=== PATIENT | male | born 1965 | race Caucasian/White ===

== ENCOUNTER → 2016-11-10 | Outpatient (CLI) | payer BC ==
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
== END | disposition home or self-care (01) ==
LOC: SLEEP 11:09
PROVIDERS: ATTEND Internal Medicine
DX: G47.33 Obstructive sleep apnea (adult) (pediatric) (principal); E66.9 Obesity, unspecified; E78.5 Hyperlipidemia, unspecified; K21.9 Gastro-esophageal reflux disease without esophagitis; Z68.31 Body mass index [BMI] 31.0-31.9, adult; Z79.899 Other long term (current) drug therapy
CPT/HCPCS: 99211

== ENCOUNTER → 2017-02-09 | Outpatient (CLI) | payer BC ==
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
== END | disposition home or self-care (01) ==
LOC: SLEEP 15:04
PROVIDERS: ATTEND Internal Medicine
DX: G47.33 Obstructive sleep apnea (adult) (pediatric) (principal); E78.5 Hyperlipidemia, unspecified; M54.9 Dorsalgia, unspecified; K21.9 Gastro-esophageal reflux disease without esophagitis; E66.9 Obesity, unspecified; Z68.33 Body mass index [BMI] 33.0-33.9, adult; Z98.890 Other specified postprocedural states; Z96.611 Presence of right artificial shoulder joint; Z79.899 Other long term (current) drug therapy

== ENCOUNTER → 2018-02-08 | Outpatient (CLI) | payer BC ==
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
== END | disposition home or self-care (01) ==
LOC: SLEEP 09:54
PROVIDERS: ATTEND Internal Medicine
DX: G47.33 Obstructive sleep apnea (adult) (pediatric) (principal); E66.9 Obesity, unspecified; M54.9 Dorsalgia, unspecified; E78.5 Hyperlipidemia, unspecified; K21.9 Gastro-esophageal reflux disease without esophagitis; M25.819 Other specified joint disorders, unspecified shoulder; Z99.89 Dependence on other enabling machines and devices; Z79.899 Other long term (current) drug therapy; Z68.35 Body mass index [BMI] 35.0-35.9, adult; Z98.890 Other specified postprocedural states; Z87.828 Personal history of other (healed) physical injury and trauma

== ENCOUNTER 2018-10-14 06:07 | Emergency (ER) | payer BC ==
[2018-10-14 06:20] VITALS: RESP 18; TEMP 98.1
[2018-10-14] MEDS ORDERED: SODIUM CHLORIDE 0.9% 1,000 ML IV STA (06:34)
--- NOTE | 2018-10-14 06:38 | ED ---
Abdominal Pain HPI - General Chief Complaint: Abdominal Pain Stated Complaint: groin and back pain,light headed Time Seen by Provider: 10/14/18 06:15 Source: patient, RN notes reviewed Mode of arrival: ambulatory Limitations: no limitations - History of Present Illness Initial Comments: 53-year-old male presents emergency Department chief complaint of sudden onset of left flank pain. Patient states that the pain is improved at this time but states there is moderate left lower quadrant pain. Patient states pain radiated only to his back. Patient admits nausea no vomiting he did have a normal bowel movement which it did not really alleviate the symptoms. He has no dysuria no hematuria no history of bowel infections no prior abdominal surgeries no history kidney stones. Patient states that nothing really made the pain feel better or worse. Patient states it's much pain that he felt very lightheaded denies any chest pain or syncopal episode. - Related Data Home Medications Medication Instructions Recorded Confirmed Meloxicam 15 mg PO DAILY 10/14/18 10/14/18 Omeprazole Magnesium [PriLOSEC OTC] 20 mg PO DAILY PRN 10/14/18 10/14/18 Previous Rx's Medication Instructions Recorded Ketorolac [Toradol] 10 mg PO Q8HR #15 tab 10/14/18 Ondansetron Odt [Zofran Odt] 4 mg PO Q8HR PRN #10 tab 10/14/18 Tamsulosin [Flomax] 0.4 mg PO DAILY #7 cap 10/14/18 Allergies Allergy/AdvReac Type Severity Reaction Status Date / Time No Known Allergies Allergy Verified 10/14/18 06:20 Review of Systems ROS Statement: Those systems with pertinent positive or pertinent negative responses have been documented in the HPI. ROS Other: All systems not noted in ROS Statement are negative. Past Medical History Past Medical History: GERD/Reflux History of Any Multi-Drug Resistant Organisms: None Reported Past Surgical History: Orthopedic Surgery, Tonsillectomy Additional Past Surgical History / Comment(s): CARPAL TUNNEL LEFT and Right HAND , ARTHROSCOPIC LEFT KNEE Past Anesthesia/Blood Transfusion Reactions: No Reported Reaction Past Psychological History: No Psychological Hx Reported Smoking Status: Former smoker Past Alcohol Use History: Occasional Past Drug Use History: None Reported - Past Family History Mother Family Medical History: Cancer General Exam Limitations: no limitations General appearance: alert, in no apparent distress Head exam: Present: atraumatic, normocephalic, normal inspection Neck exam: Present: normal inspection, full ROM. Absent: tenderness, meningismus, lymphadenopathy Respiratory exam: Present: normal lung sounds bilaterally. Absent: respiratory distress, wheezes, rales, rhonchi, stridor Cardiovascular Exam: Present: regular rate, normal rhythm, normal heart sounds. Absent: systolic murmur, diastolic murmur, rubs, gallop, clicks GI/Abdominal exam: Present: soft, normal bowel sounds. Absent: distended, tenderness, guarding, rebound, rigid Back exam: Present: full ROM. Absent: tenderness, CVA tenderness (R), CVA te nderness (L), muscle spasm, paraspinal tenderness, vertebral tenderness Neurological exam: Present: alert, oriented X3, CN II-XII intact Skin exam: Present: warm, dry, intact, normal color. Absent: rash Course Vital Signs 10/14/18 10/14/18 06:14 07:05 Temperature 98.1 F Pulse Rate 88 73 Respiratory 18 18 Rate Blood Pressure 168/78 150/84 O2 Sat by Pulse 98 97 Oximetry Medical Decision Making - Medical Decision Making 53-year-old male presents for left flank pain. Patient had labs urinalysis and CT urinalysis shows evidence of hematuria, symptoms are consistent with stone I did review the CT which appears to be a small stone in the left ureter. Patient's pain is controlled patient will be discharged at this time with Toradol, Zofran, Flomax. Patient will follow-up with PCP and urology return parameters were discussed. - Lab Data Result diagrams: 10/14/18 07:03 10/14/18 07:03 Lab Results 10/14/18 10/14/18 10/14/18 Range/Units 06:58 07:03 07:03 WBC 8.1 (3.8-10.6) k/uL RBC 4.85 (4.30-5.90) m/uL Hgb 14.4 (13.0-17.5) gm/dL Hct 44.4 (39.0-53.0) % MCV 91.6 (80.0-100.0) fL MCH 29.7 (25.0-35.0) pg MCHC 32.4 (31.0-37.0) g/dL RDW 15.6 H (11.5-15.5) % Plt Count 214 (150-450) k/uL Neutrophils % 75 % Lymphocytes % 19 % Monocytes % 5 % Eosinophils % 1 % Basophils % 0 % Neutrophils # 6.1 (1.3-7.7) k/uL Lymphocytes # 1.5 (1.0-4.8) k/uL Monocytes # 0.4 (0-1.0) k/uL Eosinophils # 0.1 (0-0.7) k/uL Basophils # 0.0 (0-0.2) k/uL Sodium 141 (137-145) mmol/L Potassium 4.1 (3.5-5.1) mmol/L Chloride 109 H (98-107) mmol/L Carbon Dioxide 23 (22-30) mmol/L Anion Gap 9 mmol/L BUN 22 H (9-20) mg/dL Creatinine 1.21 (0.66-1.25) mg/dL Est GFR (CKD-EPI)AfAm 78 (>60 ml/min/1.73 sqM) Est GFR (CKD-EPI)NonAf 67 (>60 ml/min/1.73 sqM) Glucose 155 H (74-99) mg/dL Calcium 9.2 (8.4-10.2) mg/dL Total Bilirubin 0.6 (0.2-1.3) mg/dL AST 30 (17-59) U/L ALT 47 (21-72) U/L Alkaline Phosphatase 59 (38-126) U/L Total Protein 6.7 (6.3-8.2) g/dL Albumin 4.0 (3.5-5.0) g/dL Lipase 159 (23-300) U/L Urine Color Yellow Urine Appearance Cloudy (Clear) Urine pH 5.5 (5.0-8.0) Ur Specific Happy 1.016 (1.001-1.035) Urine Protein Trace H (Negative) Urine Glucose (UA) Negative (Negative) Urine Ketones Negative (Negative) Urine Blood Large H (Negative) Urine Nitrite Negative (Negative) Urine Bilirubin Negative (Negative) Urine Urobilinogen <2.0 (<2.0) mg/dL Ur Leukocyte Esterase Negative (Negative) Urine RBC 142 H (0-5) /hpf Urine WBC 3 (0-5) /hpf Ur Squamous Epith Cells <1 (0-4) /hpf Urine Mucus Few H (None) /hpf Urine Yeast (Budding) Many H (None) /hpf Disposition Clinical Impression: Left ureteral calculus, Hematuria Disposition: HOME SELF-CARE Condition: Stable Instructions (If sedation given, give patient instructions): Kidney Stones (ED) Additional Instructions: Please return to the Emergency Department if symptoms worsen or any other concerns. Prescriptions: Tamsulosin [Flomax] 0.4 mg PO DAILY #7 cap Ketorolac [Toradol] 10 mg PO Q8HR #15 tab Ondansetron Odt [Zofran Odt] 4 mg PO Q8HR PRN #10 tab PRN Reason: Nausea Is patient prescribed a controlled substance at d/c from ED?: No Referrals: Richard Colmenares DO [Primary Care Provider] - 1-2 days Neo Aguilar MD [STAFF PHYSICIAN] - 1-2 days Time of Disposition: 07:48
[2018-10-14 07:14] LABS: Basophils % (A) 0 %; Eosinophils # (A) 0.1 k/uL (0-0.7); Eosinophils % (A) 1 %; HCT 44.4 % (39.0-53.0); HGB 14.4 gm/dL (13.0-17.5); Lymphocytes # (A) 1.5 k/uL (1.0-4.8); Lymphocytes % (A) 19 %; MCH 29.7 pg (25.0-35.0); MCHC 32.4 g/dL (31.0-37.0); MCV 91.6 fL (80.0-100.0); Mean Platelet Volume 7.3; Monocytes # (A) 0.4 k/uL (0-1.0); Monocytes % (A) 5 %; Neutrophils # (A) 6.1 k/uL (1.3-7.7); Neutrophils % (A) 75 %; Platelet Count 214 k/uL (150-450); RBC 4.85 m/uL (4.30-5.90); RDW 15.6 % (11.5-15.5); WBC 8.1 k/uL (3.8-10.6)
[2018-10-14 07:21] LABS: Appearance,Urine Cloudy (Clear); Bilirubin,Urine Negative (Negative); Blood,Urine Large (Negative); Budding Yeast,Urine Many /hpf; Color,Urine Yellow; Glucose,Urine (UA) Negative (Negative); Ketones,Urine Negative (Negative); Leukocyte Esterase,Urine Negative (Negative); Mucus,Urine Few /hpf; Nitrite,Urine Negative (Negative); PH, Urine 5.5 (5.0-8.0); Protein,Urine Trace (Negative); RBC,Urine 142 /hpf (0-5); Specific Gravity,Urine 1.016 (1.001-1.035); Squamous Epithelial Cell,Urine <1 /hpf (0-4); Urobilinogen,Urine <2.0 mg/dL (<2.0)
[2018-10-14 07:30] LABS: Calcium 9.2 mg/dL (8.4-10.2); Potassium 4.1 mmol/L (3.5-5.1); Total Bilirubin 0.6 mg/dL (0.2-1.3); Total Protein 6.7 g/dL (6.3-8.2)
--- NOTE | 2018-10-14 07:39 | CT ---
EXAMINATION TYPE: CT abdomen pelvis wo con DATE OF EXAM: 10/14/2018 COMPARISON: NONE HISTORY: LLQ pain with bowel changes. CT DLP: 842.8 mGycm Automated exposure control for dose reduction was used. FINDINGS: Visualized portions of the lungs are clear. There is no pleural or pericardial fluid. The h eart is not enlarged. Within the abdomen, there is hepatosplenomegaly with the liver measuring 22 cm and the spleen measuri ng 16.5 cm. The gallbladder is unremarkable. Both adrenal glands are normal. There is no evidence of necrosis or nephrolithiasis. Limited views of the pancreas are unremarkable. There is no significant retroperitoneal, iliac or inguinal adenopathy. Wall the bladder appears mildly thickened. The bladder however, is not distended. There are bilateral direct hernias containing fat only, greater on the right than the left. The left side of the colon is largely collapsed. This makes assessment of bowel wall thickening diffi cult. The appendix is unremarkable. Small bowel loops are normal in caliber. There is a small periumbilical hernia containing fat only with a mouth measuring 1.2 cm. There is no free fluid and no free air. There is facet arthropathy and degenerative disc disease within the spine. There is mild hypertrophic spondylosis in the dorsal spine. IMPRESSION: 1. MILD HEPATOSPLENOMEGALY. 2. NO EVIDENCE OF NEPHROLITHIASIS OR HYDRONEPHROSIS. 3. NORMAL APPENDIX. 4. COLLAPSE OF THE LEFT SIDE OF THE COLON MAKES IT DIFFICULT TO EXCLUDE BOWEL WALL THICKENING. PLEASE CORRELATE TO EXCLUDE COLITIS. 5. BILATERAL DIRECT INGUINAL HERNIAS CONTAINING FAT ONLY. 6. PERIUMBILICAL HERNIA CONTAINING FAT ONLY WITH A 1.2 CM MOUTH. 7. DEGENERATIVE CHANGES WITHIN THE SPINE.
[2018-10-14 07:56] VITALS: BP 144/83; PULSE 94
== END 2018-10-14 07:55 | disposition home or self-care (01) ==
LOC: EC 06:07
DX: N20.1 Calculus of ureter (principal); Z87.891 Personal history of nicotine dependence; Z87.19 Personal history of other diseases of the digestive system
CPT/HCPCS: 36415; 74176; 80053; 81001; 83690; 85025; 96360; 99284

== ENCOUNTER → 2020-04-03 | Outpatient (CLI) | payer BC ==
--- NOTE | 2020-04-05 10:56 | MR ---
EXAMINATION TYPE: MR shoulder LT wo con DATE OF EXAM: 04/03/2020 COMPARISON: None HISTORY: Left shoulder pain for 1 month. TECHNIQUE: Multiplanar, multisequence imaging of the left shoulder is performed without contrast. FINDINGS: Rotator Cuff: Small joint effusion is present. There is fluid in subacromial bursa and subdeltoid bur sa. Fluid surrounds the supraspinatus tendon. No tendon retraction is evident. Muscles signal through the rotator cuff appears normal. Correlate for moderate tendinosis supraspinatus tendon. Acromioclavicular Joint: Hypertrophy with downward spurring which can contribute to impingement syndr ome Glenohumeral Joint: There is thinning of the articular cartilage. Correlate for moderate osteoarthrit ic degenerative change. Labrum: Degenerative changes appear to be present throughout the glenoid labrum. Biceps Tendon: The biceps tendon is within the bicipital groove. This is surrounded by fluid. Correla te for moderate tendinosis. Bone marrow signal: No focal abnormal marrow signal is appreciated. Other: No additional significant abnormality is appreciated. IMPRESSION: 1. Moderate osteoarthritic degenerative change left shoulder. 2. Moderate tendinosis supraspinatus tendon and long head biceps tendon. 3. No suspicious rotator cuff tear is evident. Small perforation is not identified. 3. Small joint effusion
== END | disposition home or self-care (01) ==
LOC: RADMRIMAIN 20:27
PROVIDERS: ATTEND Orthopaedic Surgery
DX: M19.012 Primary osteoarthritis, left shoulder (principal); M67.814 Other specified disorders of tendon, left shoulder

== ENCOUNTER → 2020-06-22 | Outpatient (CLI) | payer BC ==
[2020-06-22 17:19] LABS: Basophils % (A) 1 %; Eosinophils # (A) 0.1 k/uL (0-0.7); Eosinophils % (A) 2 %; HCT 45.6 % (39.0-53.0); HGB 15.5 gm/dL (13.0-17.5); Lymphocytes # (A) 1.8 k/uL (1.0-4.8); Lymphocytes % (A) 35 %; MCH 29.8 pg (25.0-35.0); MCHC 34.1 g/dL (31.0-37.0); MCV 87.3 fL (80.0-100.0); Monocytes # (A) 0.3 k/uL (0-1.0); Monocytes % (A) 6 %; Neutrophils # (A) 2.8 k/uL (1.3-7.7); Neutrophils % (A) 55 %; Platelet Count 249 k/uL (150-450); RBC 5.22 m/uL (4.30-5.90); RDW 13.2 % (11.5-15.5)
[2020-06-22 17:54] LABS: Potassium 4.8 mmol/L (3.5-5.1)
== END | disposition home or self-care (01) ==
LOC: LABPAT 15:55
PROVIDERS: ATTEND Orthopaedic Surgery
DX: Z01.818 Encounter for other preprocedural examination (principal); Z01.810 Encounter for preprocedural cardiovascular examination; M75.42 Impingement syndrome of left shoulder
CPT/HCPCS: 36415; 80051; 85025; 93005

== ENCOUNTER 2020-07-10 06:06 | Day surgery (SDC) | payer BC ==
[2020-07-07 14:04] VITALS: BMI 34.8
--- NOTE | 2020-07-09 11:40 | HP ---
HISTORY AND PHYSICAL CHIEF COMPLAINT: Left shoulder pain. 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 He notes pain with overhead use and with activity in addition to night symptoms. He notes it significantly limits him. He has tried medications in addition to previous injection with persistence of his symptoms. He has also been working on home stretching regimen without much relief. PAST MEDICAL HISTORY: Significant for anxiety disorder. PAST SURGICAL HISTORY: Seen for right hand surgery and right knee surgery. CURRENT MEDICATIONS: 1. Naprosyn. 2. Omeprazole. 3. [place]. ALLERGIES: He denies drug allergies. FAMILY HISTORY: Noncontributory. SOCIAL HISTORY: Significant for previous tobacco use. REVIEW OF SYSTEMS: Sixteen-point review of systems otherwise reviewed and is noncontributory. PHYSICAL EXAMINATION: On examination, the patient is approximately 5 feet 11 inches, 245 pounds of endomorphic habitus. HEENT exam is nonfocal. Neck is supple. On examination of his left shoulder, he is tender about the anterior subacromial space. Moderate subacromial crepitus is noted. Active range of motion forward elevation 100 degrees, external rotation with the arm side 30 degrees, internal rotation to L3. Passively I am able to forward elevate him to 150 degrees. Motor strength is 4/5 for abduction and external rotation. Impingement test, Neer test, and Speed test are positive. His distal neurovascular exam otherwise appears intact in the left upper extremity. MRI report left shoulder from 04/03/2020 shows supraspinatus and bicipital tendinosis. There is also a questionable anterior partial-thickness tear of the supraspinatus. IMPRESSION: 1. Left shoulder impingement/possible partial-thickness rotator cuff tear. 2. Left proximal bicipital tendinosis. RECOMMENDATIONS: I talked to the patient at length regarding his condition and treatment options. At this point, he remains quite symptomatic and limited despite previous conservative measures. After thorough discussion, he opts to proceed with surgery. We will plan to proceed with arthroscopic evaluation of the left shoulder with possible rotator cuff debridement versus repair in addition to subacromial decompression, and possible biceps tenotomy. We will likely perform that as an outpatient procedure. Risks and benefits were discussed at length in layman's terms. MMODL / IJN: [id number] /
[~2020-07-10 06:06] MED LIST: DEXAMETHASONE SOD PHOSPHATE 4 MG/ML 1 ML VIAL IV ONE; LACTATED RINGERS 1,000 ML IV SCH; MIDAZOLAM 2 MG/2 ML VIAL IV PRN; ONDANSETRON 4 MG/2 ML VIAL IVP ONE; SCOPOLAMINE 1.5MG/72HR PATCH TRANSDERM ONE
[2020-07-10] MEDS ORDERED: LIDOCAINE 1% (10MG/ML) FOR IV START INTRADERMA ONE (06:42)
[2020-07-10] MEDS ORDERED: HYDROmorphone 0.5 MG/0.5 ML SYRINGE IVP PRN (07:00)
[2020-07-10] MEDS ORDERED: MIDAZOLAM 2 MG/2 ML VIAL IVP ONE (07:03)
[2020-07-10] MEDS ORDERED: fentaNYL (PF) 50 MCG/ML 2 ML AMP IVP ONE (07:03)
--- NOTE | 2020-07-10 07:32 | P.ANPRN ---
Procedure Note - Anesthesia - Nerve Block Performed Left Interscalene Single Time Out Performed: Yes ([id number]) Date of Procedure: 07/10/20 Procedure Start Time: :03 Procedure Stop Time: 07:09 Location of Patient: PreOp Indication: Acute Post-Operative Pain, Analgesia, Requested by Surgeon Specifically requested for management of pain by : Aron Charles Sedation Type: Sedate with meaningful contact maintained Preparation: Sterile Prep Position: Supine Catheter: None Needle Types: Pajunk Needle Gauge: 20 Ultrasound used to visualize needle placement: No Ultrasound used to observe medication spread: No Injectate: 0.5% Ropivacaine (see comment for volume) (20 ML) Blood Aspirated: No Pain Paresthesia on Injection Noted: No Resistance on Injection: Normal Image Stored and Saved: Yes Events: Uneventful and Well Tolerated
[2020-07-10] MEDS ORDERED: GLYCOPYRROLATE 0.2 MG/ML 2 ML VIAL ONE (07:45)
[2020-07-10] MEDS ORDERED: SUCCINYLCHOLINE CHLORIDE 100 MG/5 ML SYR IV ONE (07:45)
[2020-07-10] MEDS ORDERED: fentaNYL (PF) 50 MCG/ML 2 ML AMP ONE (07:45)
[2020-07-10] MEDS ORDERED: PROPOFOL 10 MG/ML 20 ML VIAL IV ONE (07:45)
[2020-07-10] MEDS ORDERED: ROCURONIUM 10 MG/ML (5 ML VIAL) IV ONE (07:45)
[2020-07-10] MEDS ORDERED: NEOSTIGMINE 1 MG/ML 10 ML VIAL ONE (07:45)
[2020-07-10] MEDS ORDERED: LIDOCAINE 1% INJ 10MG/ML (20 ML MDV) ONE (07:45)
[2020-07-10] MEDS ORDERED: EPINEPHrine (PF) 1 ML in SODIUM CHLORIDE 0.9% IRRIGATIO 3,000 ML IRRIGATION ONE ×8 (07:49)
--- NOTE | 2020-07-10 09:12 | P.OP ---
Date of Procedure: 07/10/20 Preoperative Diagnosis: Left shoulder impingement/acromioclavicular joint arthritis Postoperative Diagnosis: Same in addition to high-grade partial thickness bursal surface rotator cuff tear and type II superior labral lesion with bicipital tendinitis Procedure(s) Performed: Left shoulder arthroscopic subacromial decompression/rotator cuff repair/distal clavicular resection/biceps tenotomy Implants: Arthrex 5.5 mm swivel lock anchor 1 Anesthesia: LARA, regional Surgeon: Aron Charles Boiler House Inspector #1: Hipolito Palomares Estimated Blood Loss (ml): 10 Pathology: none sent Condition: stable Disposition: PACU Indications for Procedure: The patient's a 55-year-old male who presents with persistent/progressive left shoulder pain despite conservative measures. A discussion of the risks and benefits of operative intervention versus continued conservative measures was made with the patient. He opted to proceed with surgery. Operative risks to include infection, neurovascular injury, development of blood clots, possible incomplete resolution of symptoms, possible tendon rerupture, possible postoperative stiffness and need for subsequent procedures was discussed. Informed consent was obtained. Operative Findings: As below Description of Procedure: The patient was brought to the operating room, and after induction of general anesthesia was placed in a beachchair position. A preoperative interscalene block was placed for postoperative analgesia. I examined the left shoulder. There was no gross block to passive motion or gross glenohumeral instability. The left upper extremity was prepped and draped in normal fashion. The bony outlines the acromion, distal clavicle, and coracoid process were outlined with a skin marker. The glenohumeral joint was inflated with 50 mL of saline utilizing a spinal needle from posterior approach. A posterior portal was made through a 5 mm skin incision 1 cm medial and inferior to the posterior lateral border time. A blunt trocar was used to easily into the joint. Diagnostic arthroscopy was performed. An anterior portal was made just lateral to the coracoid process entering the joint above the subscapularis tendon. The subscapularis tendon appeared to be intact. Anterior labrum was intact. The inferior recess was inspected. The posterior labrum was intact. There was a high-grade partial-thickness tear of the long head of the biceps involving interarticular portion along with a type II superior labral tear. It was elected to proceed with release at this point. This was released from the superior labrum with electrocautery and was allowed to retract to the bicipital groove. On inspection the rotator cuff, it was intact on the articular surface. A lateral portal was made 2 centimeters inferior to the anterior lateral border of the acromion. The soft tissue on the undersurface of the acromion was debrided with a motorized shaver and electrocautery clearly defining the anterior medial and lateral borders as well as the distal clavicle. An anterior inferior acromioplasty was performed with a motorized jesenia starting anterolateral, then extending this posteriorly, then extending this medially. I converted to a flat acromion and this was verified in the posterior and lateral viewing portals. The distal clavicle appeared to impinge in the subacromial space in addition there was significant acromioclavicular joint arthritis. The distal 4 mm of the clavicle was resected with a motorized bur. Significant bursal thickening was noted. This was debrided with motorized shaver. The rotator cuff was inspected. There is a high-grade partial-thickness tear involving the anterior aspect the supraspinatus. This tear was completed with a motorized shaver. The tissue is easily mobilized back to the tuberosity. Tuberosity was decorticated with a motorized bur. A #2 fiber tape was passed with a scorpion suture passer. A lateral anchor was placed utilizing the appropriate starting awl. Rotator cuff was appropriately tensioned and the anchor was inserted. Good purchase was obtained. Final evaluation rotator cuff showed good compression of the footprint. The arthroscope was then removed. The portals were closed with simple 3-0 nylon sutures. A sterile dressing was applied in addition to an abductor brace. The patient was then awoken from general anesthesia and transferred to recovery room in good condition. Blood loss was estimated at 10 mL. No complications were incurred. Sponge and needle counts were correct in the case. Hipolito AGGARWAL assisted and the major comp onents of the case to include arm positioning, anchor placement, and rotator cuff repair.
[2020-07-10 09:23] VITALS: TEMP 97.1
[2020-07-10] MEDS ORDERED: LACTATED RINGERS 1,000 ML IV ONE ×2 (09:30)
[2020-07-10 10:28] VITALS: RESP 16
[2020-07-10 11:18] VITALS: BP 117/74; PULSE 100
== END 2020-07-10 11:17 | disposition home or self-care (01) ==
LOC: OR 06:06
PROVIDERS: ATTEND Orthopaedic Surgery
DX: M75.42 Impingement syndrome of left shoulder (principal); M19.012 Primary osteoarthritis, left shoulder; M75.112 Incomplete rotator cuff tear or rupture of left shoulder, not specified as traumatic; S43.432A Superior glenoid labrum lesion of left shoulder, initial encounter; M75.22 Bicipital tendinitis, left shoulder; G47.33 Obstructive sleep apnea (adult) (pediatric); K21.9 Gastro-esophageal reflux disease without esophagitis; F41.9 Anxiety disorder, unspecified; Z79.899 Other long term (current) drug therapy; Z99.89 Dependence on other enabling machines and devices; X58.XXXA Exposure to other specified factors, initial encounter
CPT/HCPCS: 64415; 76942; 29827; 29828; 29826; 29824; C1713 ×2; C1894; J2250; J1100; J2710; J0690; J2405; J0171; J2001; J3010; J0330; J2704

== ENCOUNTER 2020-07-10 13:48 | Emergency (ER) | payer BC ==
[2020-07-10 13:52] VITALS: RESP 18
[2020-07-10 14:06] VITALS: TEMP 97.9
--- NOTE | 2020-07-10 14:17 | ED ---
SOB HPI - General Chief Complaint: Shortness of Breath Stated Complaint: post op chest pain Time Seen by Provider: 07/10/20 14:03 Source: patient, RN notes reviewed Mode of arrival: ambulatory Limitations: no limitations - History of Present Illness Initial Comments: 55-year-old white male presents to the emergency room after having arthroscopic left shoulder surgery today with Dr. Grimes. Patient was discharged at noon. Patient states that before discharge he developed some shortness of breath and chest pressure. Pt states was told to take a few deep breaths and then discharged home. Patient states that he continued to have the shortness of andrey ath especially with exertion at home. Patient currently well-appearing, no acute distress, states he also received his first covid vaccine yesterday and it may be related. Patient has a history of GERD, osteoarthritis, sleep apnea with use of the CPAP machine. at bedside. MD Complaint: shortness of breath -: hour(s) (2) Severity: mild Severity scale (1-10): 1 Quality: other (pressure) Consistency: intermittent Improves With: rest, other (sitting up) Worsens With: exertion Context: other (arthroscopic left shoulder surgery today, d/c at noon) Associated Symptoms: denies other symptoms Treatments Prior to Arrival: none - Related Data Home Medications Medication Instructions Recorded Confirmed Omeprazole Magnesium [PriLOSEC OTC] 20 mg PO DAILY PRN 10/14/18 07/10/20 Naproxen 500 mg PO DAILY 07/10/20 07/10/20 traMADol HCl [Ultram] 50 mg PO Q8HR PRN 07/10/20 07/10/20 Previous Rx's Medication Instructions Recorded Azithromycin [Zithromax Z-pack (6 0 mg PO DIRECTED #1 pack 07/10/20 tabs)] HYDROcodone/APAP 7.5-325MG [Surprise 1 each PO Q6HR PRN #28 tab 07/10/20 7.5] Allergies Allergy/AdvReac Type Severity Reaction Status Date / Time No Known Allergies Allergy Verified 07/10/20 13:53 Review of Systems ROS Statement: Those systems with pertinent positive or pertinent negative responses have been documented in the HPI. ROS Other: All systems not noted in ROS Statement are negative. Past Medical History Past Medical History: GERD/Reflux, Osteoarthritis (OA), Sleep Apnea/CPAP/BIPAP History of Any Multi-Drug Resistant Organisms: None Reported Past Surgical History: Orthopedic Surgery, Tonsillectomy Additional Past Surgical History / Comment(s): trevon CARPAL TUNNEL , ARTHROSCOPIC LEFT KNEE. trevon thumb basal joint sx, ablation back nerve Past Anesthesia/Blood Transfusion Reactions: Previous Problems w/ Anesthesia Additional Past Anesthesia/Blood Transfusion Reaction / Comment(s): states was told he "stopped breathing once" with anesthesia Past Psychological History: No Psychological Hx Reported Smoking Status: Current every day smoker (1 ppd fpr pver 40 years) Past Alcohol Use History: Daily (states drinks 8 beers a day) Past Drug Use History: None Reported - Past Family History Mother Family Medical History: Cancer General Exam Limitations: no limitations General appearance: alert, in no apparent distress Head exam: Present: atraumatic, normocephalic, normal inspection Eye exam: Present: normal appearance, PERRL, EOMI. Absent: scleral icterus, conjunctival injection, periorbital swelling Neck exam: Present: normal inspection, full ROM. Absent: tenderness, meningismus, lymphadenopathy, thyromegaly Respiratory exam: Present: normal lung sounds bilaterally. Absent: respiratory distress, wheezes, rales, rhonchi, stridor, decreased breath sounds Cardiovascular Exam: Present: tachycardia, normal heart sounds GI/Abdominal exam: Present: soft, normal bowel sounds. Absent: distended, tenderness, guarding, rebound, rigid Extremities exam: Present: normal inspection, full ROM, normal capillary refill. Absent: tenderness, pedal edema, joint swelling, calf tenderness Back exam: Present: normal inspection Neurological exam: Present: alert, oriented X3 Psychiatric exam: Present: normal affect, normal mood Skin exam: Present: warm, dry, intact, normal color. Absent: rash Course Vital Signs 07/10/20 07/10/20 13:50 14:05 Temperature 97.5 F L 97.9 F Pulse Rate 108 H Respiratory 18 Rate Blood Pressure 147/82 O2 Sat by Pulse 97 Oximetry Medical Decision Making - Medical Decision Making Patient with shortness of breath after left shoulder surgery today. Troponin 0.012, chest x-ray shows bibasilar infiltrates or atelectasis, without WBC count of 10.2 with a left shift, white blood cell count on June 22 was 5. There is no evidence of pneumothorax, This consistent with pneumonia. Patient states did get his first Covid vaccine yesterday. EKG shows sinus tachycardia. Case discussed with Dr. Kenney, will prescribe patient a Z-Maxwell and provide incentive spirometry instruction along with follow-up with primary care doctor in 1 week. - Lab Data Result diagrams: 07/10/20 14:28 07/10/20 14:28 Lab Results 07/10/20 07/10/20 07/10/20 Range/Units 14:28 14:28 14:28 WBC 10.2 (3.8-10.6) k/uL RBC 5.12 (4.30-5.90) m/uL Hgb 15.3 (13.0-17.5) gm/dL Hct 45.0 (39.0-53.0) % MCV 87.9 (80.0-100.0) fL MCH 29.8 (25.0-35.0) pg MCHC 33.9 (31.0-37.0) g/dL RDW 13.2 (11.5-15.5) % Plt Count 220 (150-450) k/uL MPV 6.8 Neutrophils % 89 % Lymphocytes % 8 % Monocytes % 2 % Eosinophils % 0 % Basophils % 0 % Neutrophils # 9.1 H (1.3-7.7) k/uL Lymphocytes # 0.8 L (1.0-4.8) k/uL Monocytes # 0.2 (0-1.0) k/uL Eosinophils # 0.0 (0-0.7) k/uL Basophils # 0.0 (0-0.2) k/uL Sodium 140 (137-145) mmol/L Potassium 4.7 (3.5-5.1) mmol/L Chloride 104 (98-107) mmol/L Carbon Dioxide 24 (22-30) mmol/L Anion Gap 12 mmol/L BUN 18 (9-20) mg/dL Creatinine 0.94 (0.66-1.25) mg/dL Est GFR (CKD-EPI)AfAm >90 (>60 ml/min/1.73 sqM) Est GFR (CKD-EPI)NonAf >90 (>60 ml/min/1.73 sqM) Glucose 193 H (74-99) mg/dL Calcium 10.3 H (8.4-10.2) mg/dL Total Bilirubin 0.8 (0.2-1.3) mg/dL AST 40 (17-59) U/L ALT 46 (4-49) U/L Alkaline Phosphatase 64 (38-126) U/L Troponin I <0.012 (0.000-0.034) ng/mL Total Protein 7.6 (6.3-8.2) g/dL Albumin 4.7 (3.5-5.0) g/dL - EKG Data -: EKG Interpreted by Me EKG shows normal: sinus rhythm, intervals (Ventricular rate of 115, NH 0.14, QRS of 0.88, QTc 0.467; sinus tachycardia) Rate: tachycardia When compared to previous EKG there are: no significant change (compared to 06/22/20) Disposition Clinical Impression: Pneumonia Disposition: HOME SELF-CARE Condition: Good Instructions (If sedation given, give patient instructions): Pneumonia (ED) Additional Instructions: Take medication as prescribed, follow up with the primary doctor in 1 week. Use incentive spirometry at home. Prescriptions: Azithromycin [Zithromax Z-pack (6 tabs)] 0 mg PO DIRECTED #1 pack Is patient prescribed a controlled substance at d/c from ED?: No Referrals: Richard Colmenares DO [Primary Care Provider] - 1-2 days Time of Disposition: 15:59
[2020-07-10 14:39] LABS: Basophils % (A) 0 %; Eosinophils % (A) 0 %; HGB 15.3 gm/dL (13.0-17.5); Lymphocytes # (A) 0.8 k/uL (1.0-4.8); Lymphocytes % (A) 8 %; MCH 29.8 pg (25.0-35.0); MCHC 33.9 g/dL (31.0-37.0); MCV 87.9 fL (80.0-100.0); Mean Platelet Volume 6.8; Monocytes # (A) 0.2 k/uL (0-1.0); Monocytes % (A) 2 %; Neutrophils # (A) 9.1 k/uL (1.3-7.7); Neutrophils % (A) 89 %; Platelet Count 220 k/uL (150-450); RBC 5.12 m/uL (4.30-5.90); RDW 13.2 % (11.5-15.5); WBC 10.2 k/uL (3.8-10.6)
[2020-07-10 14:44] LABS: AST 40 U/L (17-59); African American GFR (CKD) >90 (>60 ml/min/1.73 sqM); Albumin 4.7 g/dL (3.5-5.0); Alkaline Phosphatase 64 U/L (38-126); Anion Gap 12 mmol/L; Blood Urea Nitrogen 18 mg/dL (9-20); Calcium 10.3 mg/dL (8.4-10.2); Carbon Dioxide 24 mmol/L (22-30); Chloride 104 mmol/L (98-107); Glucose 193 mg/dL (74-99); Non-African American GFR(CKD) >90 (>60 ml/min/1.73 sqM); Potassium 4.7 mmol/L (3.5-5.1); Sodium 140 mmol/L (137-145); Total Bilirubin 0.8 mg/dL (0.2-1.3); Total Protein 7.6 g/dL (6.3-8.2)
[2020-07-10 14:52] LABS: ALT 46 U/L (4-49)
--- NOTE | 2020-07-10 15:02 | XR ---
EXAMINATION TYPE: XR chest 2V DATE OF EXAM: 07/10/2020 COMPARISON: NONE HISTORY: Shortness of breath TECHNIQUE: Frontal and lateral views of the chest are obtained. FINDINGS: Scattered senescent parenchymal changes noted. Hyperinflation compatible with COPD. Basilar atelectasis and/or developing infiltrates. Heart size is stable. Mediastinal structures are stable and grossly unremarkable. No evidence for hilar prominence. Degenerative changes dorsal spine. IMPRESSION: 1. Basilar atelectasis and/or developing infiltrates.
[2020-07-10 16:39] VITALS: BP 131/71; PULSE 105
== END 2020-07-10 16:45 | disposition home or self-care (01) ==
LOC: EC 13:48
DX: J18.9 Pneumonia, unspecified organism (principal); R07.89 Other chest pain; K21.9 Gastro-esophageal reflux disease without esophagitis; M19.90 Unspecified osteoarthritis, unspecified site; F17.200 Nicotine dependence, unspecified, uncomplicated; G47.33 Obstructive sleep apnea (adult) (pediatric); Z99.81 Dependence on supplemental oxygen; Z90.09 Acquired absence of other part of head and neck
CPT/HCPCS: 36415; 71046; 80053; 84484; 85025; 93005; 99285

== ENCOUNTER → 2020-07-23 | Outpatient (CLI) | payer BC ==
--- NOTE | 2020-07-23 12:34 | XR ---
EXAMINATION TYPE: XR chest 2V DATE OF EXAM: 07/23/2020 COMPARISON: 07/10/2020 TECHNIQUE: PA and lateral views submitted. HISTORY: Shortness of breath FINDINGS: The lungs are clear and there is no pneumothorax, pleural effusion, or focal pneumonia. Stable 6 mm nodule right upper lobe. There is a 6 mm left upper lobe pulmonary nodule. Hyperinflation suggests C OPD. Heart size normal. Biapical pleural thickening. Hypertrophic and degenerative change of the spin e. IMPRESSION: 1. No acute process. Correlate for COPD. Biapical subcentimeter nodularity could be correlated with C T scan.
== END | disposition home or self-care (01) ==
LOC: RADXRYALE 11:33
PROVIDERS: ATTEND Physician Assistant
DX: R06.02 Shortness of breath (principal)
CPT/HCPCS: 71046

== ENCOUNTER → 2020-08-03 | Outpatient (CLI) | payer BC ==
--- NOTE | 2020-08-03 10:05 | CT ---
EXAMINATION TYPE: CT chest wo con DATE OF EXAM: 08/03/2020 COMPARISON: NONE HISTORY: Pulmonary nodule. CT DLP: 852 mGycm. Automated Exposure Control for Dose Reduction was Utilized. TECHNIQUE: CT scan of the thorax is performed without IV contrast. FINDINGS: LUNGS: Single 4 x 3 mm nodule right middle lobe may be partially calcified coronal image 34. Calcifie d 3 to 4 mm posterior right lower lobe nodule assessment 44. Scattered additional micronodules for re ference nodules posterior superior left lower lobe axial image 32. No pleural effusion or pneumothora x seen bilaterally. MEDIASTINUM: Lack of IV contrast is noted to limit evaluation for mediastinal and especially hilar ad enopathy. There are no definitive greater than 1 cm hilar or mediastinal lymph nodes. No cardiomega ly or pericardial effusion is seen. OTHER: Liver is diffusely low dense consistent with diffuse fatty infiltration. Prominent right hepat ic lobe and/or hepatomegaly there is partially imaged. Splenomegaly is seen measuring 16.0 cm long ax is axial image 63. Moderate multilevel spurring and disc space narrowing in the spine. IMPRESSION: Scattered small nodules as detailed above. No worrisome greater than 4 mm pulmonary nodul es noted.
== END | disposition home or self-care (01) ==
LOC: RADCTMAIN 08:03
PROVIDERS: ATTEND Family Medicine
DX: R91.8 Other nonspecific abnormal finding of lung field (principal); R06.02 Shortness of breath
CPT/HCPCS: 71250

== ENCOUNTER → 2020-08-05 | Outpatient (CLI) | payer BC ==
--- NOTE | 2020-08-05 09:53 | XR ---
EXAMINATION TYPE: XR knee complete RT DATE OF EXAM: 08/05/2020 COMPARISON: NONE HISTORY: 55-year-old male right knee pain, [id number]. TECHNIQUE: 3 views FINDINGS: Extensor mechanism is intact. No knee joint effusion seen. No acute fracture, subluxation, dislocatio n. IMPRESSION: No acute osseous abnormality seen.
== END | disposition home or self-care (01) ==
LOC: RADXRYALE 08:50
PROVIDERS: ATTEND Physician Assistant
DX: M25.561 Pain in right knee (principal)

== ENCOUNTER → 2020-10-03 | Outpatient (CLI) | payer BC ==
--- NOTE | 2020-10-03 15:12 | MR ---
EXAMINATION TYPE: MR knee RT wo con DATE OF EXAM: 10/03/2020 COMPARISON: None HISTORY: Right inner knee pain and swelling for almost 1 year, history of knee surgery. Multiplanar multiecho imaging of the right knee with no contrast. The anterior and posterior cruciate ligaments are intact. There is very small knee joint effusion. Th ere is large horizontal tear of the posterior horn of the medial meniscus. The lateral meniscus appea rs intact. The collateral ligaments appear intact. There is no evidence of a fracture. I see no bony destructive process. Patella appears intact. There is mild narrowing of the medial joint space. There is mild galvan bcutaneous edema on the medial aspect of the knee. IMPRESSION: Large horizontal tear of the posterior horn of the medial meniscus. No evidence of ligamentous tear. Small joint effusion. Minimal osteoarthritic changes. Mild subcutaneous edema.
== END | disposition home or self-care (01) ==
LOC: RADMRIMAIN 13:18
PROVIDERS: ATTEND Family Medicine
DX: M25.321 Other instability, right elbow (principal); M17.11 Unilateral primary osteoarthritis, right knee

== ENCOUNTER → 2022-06-09 | Outpatient (CLI) | payer BC ==
--- NOTE | 2022-06-09 12:42 | XR ---
EXAMINATION TYPE: XR shoulder complete RT DATE OF EXAM: 06/09/2022 12:04 PM INDICATION: Patient age:Male; 57 years old; Reason for study: [id number] RT SHLD PAIN; COMPARISON: None TECHNIQUE: The right shoulder was examined in AP, internally rotated and scapular Y projections. FINDINGS: No evidence of acute osseous pathology, joint dislocation, or soft tissue swelling. The remaining por tions of the visualized chest are unremarkable. IMPRESSION: 1. No acute osseous pathology. 2. No significant osteoporosis changes.
== END | disposition home or self-care (01) ==
LOC: RADXRYALE 11:38
PROVIDERS: ATTEND Physician Assistant
DX: M25.511 Pain in right shoulder (principal)

== ENCOUNTER → 2023-01-02 | Outpatient (CLI) | payer BC ==
--- NOTE | 2023-01-02 10:35 | US ---
EXAMINATION TYPE: US arterial LE single level DATE OF EXAM: 01/02/2023 9:57 AM CLINICAL INDICATION: Male, 57 years old with history of M79.662 PAIN IN LEFT LOWER,M79.661,M79.672,M7 9.671; Pain in bilateral feet and legs. Patient feels pins and needles feeling in bilateral feet at r est. History of: Smoker: Previous Hypertension: Yes Diabetic: No Hyperlipidemia: No TIA/CVA: No Previous Vascular Surgery: No CAD: No [place]: No Vascular Ulcers: None Claudication: No Gangrene: No Doppler Waveforms: Right: Multiphasic Left: Multiphasic Right Brachial Pressure: 123 Left Brachial Pressure: 140 Ankle-Brachial Indices: Right: 1.15 Left: 1.12 Toe Brachial Indices: Right: 0.84 Left: 1.01 IMPRESSION: Ankle brachial indices within normal limits bilaterally.
== END | disposition home or self-care (01) ==
LOC: RADUSWWP 08:46
PROVIDERS: ATTEND Family Medicine
DX: M79.662 Pain in left lower leg (principal); M79.661 Pain in right lower leg; M79.672 Pain in left foot; M79.671 Pain in right foot
CPT/HCPCS: 93922

== ENCOUNTER → 2023-08-22 | Outpatient (CLI) | payer BC ==
--- NOTE | 2023-08-22 12:08 | XR ---
EXAMINATION TYPE: XR abdomen 1V DATE OF EXAM: 08/22/2023 Comparison: None Clinical History: 58-year-old male [id number] GROSS HEMATURIA Findings: Lung bases are clear. Supine imaging limited for assessment of free air. Gassy bowel loops without abnormal dilatation. Mild to moderate stool burden. Suspect some central prostatic calcifications. Bowel content largely obscures the renal shadows. Othe rwise, no suspicious calcifications clearly seen. Generator device left mid to lower abdomen with stimulator leads extending to the lower thoracic spin al canal. Impression: Nonspecific, nonobstructive bowel gas pattern. Gassy bowel. Mild to moderate stool burden. Bowel cont ent largely obscures the renal shadows.
== END | disposition home or self-care (01) ==
LOC: RADXRYALE 11:22
PROVIDERS: ATTEND Physician Assistant Medical
DX: R31.0 Gross hematuria (principal)
CPT/HCPCS: 74018